=== PATIENT | female | born 1935 | race Caucasian/White ===

== ENCOUNTER 2018-11-07 19:08 | Inpatient (IN) | payer MEDICARE, OTHER ==
[2018-11-07] MEDS ORDERED: Nitroglycerin TAB 0.4 MG* 0.4 MG TAB SL PRN (21:56)
[2018-11-07] MEDS ORDERED: Bisacodyl EC TAB* 5 MG PO PRN (21:56)
[2018-11-07] MEDS ORDERED: Magnesium Hydroxide LIQ* 30 ML UDC PO PRN (21:56)
[2018-11-07] MEDS ORDERED: Acetaminophen TAB* 325 MG PO PRN (21:57)
[2018-11-07] MEDS ORDERED: oxyCODONE/Acetamin 5/325 MG* TAB PO PRN (21:57)
[2018-11-07] MEDS ORDERED: Heparin VIAL(*) 5000 UNITS/ML VIAL (FIVE THOUSAND) SUBCUT SCH (22:00)
[2018-11-07] MEDS ORDERED: Sodium Phosphate ADULT ENEMA* 118 ml bottle PR PRN (22:22)
[2018-11-07] MEDS ORDERED: Bisacodyl SUPP* 10 MG SUPP PR PRN (22:22)
[2018-11-07] MEDS: Morphine INJ* 2 MG/ML 1 ML SYRINGE (TWO MG - NEW SYRINGE VERSION) IV PRN (23:27)
[2018-11-07 23:50] LABS: Urine Appearance Clear; Urine Bilirubin Negative (Negative); Urine Blood Negative (Negative); Urine Color Yellow; Urine Glucose Negative (Negative); Urine Ketones Negative (Negative); Urine Nitrite Negative (Negative); Urine Protein Negative (Negative); Urine Specific Gravity 1.019 (1.010-1.030); Urine Urobilinogen Negative (Negative)
--- NOTE | 2018-11-08 00:32 | HP ---
CC: "Dr. Valdes"; Dr. Garduno * HISTORY AND PHYSICAL: DATE OF ADMISSION: 11/07/18 TIME OF EVALUATION: 9:30 p.m. PRIMARY CARE PROVIDER: Ruth Ann Kyle NP CONSULTING ORTHOPEDIST: Dr. Garduno. CHIEF COMPLAINT: "She broke her hip" as per son. HISTORY OF PRESENT ILLNESS: Ms. Diaz is an 83-year-old female with a past medical history of dementia, who was transferred from [facility] to our facility due to a hip fracture. The patient is a poor historian and most of the information is obtained from her records and from her family at bedside. As per the son, the patient has had dementia for almost 10 years and they were able to place the patient and her at [facility], but this was difficult for the family as they lived in [facility]. Earlier this year, the patient's passed and the family has been trying to move her to an area closer as another son moved to [place]. Finally, on 11/02/18, the patient was transferred from [facility] to [facility], and the family thinks she was adapting well and the family was happy too as they were able to see her more frequently and not having to drive such a long distance. Unfortunately today, the patient sustained a mechanical fall. The son thinks she tripped on a rug or on a chair. She went to [facility] and per records, she hit her head and had indicated pain in her pelvis. CT of the head without contrast showed atrophy and small scalp hematoma and CT of the pelvis showed left hip fracture. Orthopedist (Dr. Garduno) was consulted by [facility] and recommendation was to transfer to our facility for further evaluation and possible surgical management. At the time of my interview, the patient is sleeping, arousable to touch and she offers no complaints. PAST MEDICAL HISTORY: Dementia. PAST SURGICAL HISTORY: Status post hemorrhoidectomy. MEDICATIONS: 1. Omeprazole 20 mg p.o. daily. 2. Potassium chloride 20 mEq p.o. daily. 3. Sertraline 100 mg p.o. daily. 4. Lorazepam 0.5 mg p.o. b.i.d. 5. Sucralfate 1 g p.o. b.i.d. 6. Lactulose 10 g p.o. b.i.d. 7. MiraLAX 1 packet p.o. b.i.d. 8. Acetaminophen 500 mg p.o. b.i.d. 9. Aspirin 81 mg p.o. daily as needed for chest pain. 10. Acetaminophen 650 mg p.o. q.6 h. p.r.n. pain or fever. ALLERGIES: No known drug allergies. FAMILY HISTORY: I am unable to obtain from the patient but as per son he does not recall any specific significant family history. SOCIAL HISTORY: The patient has no history of tobacco, alcohol or drug use. She has [facility] living in the [facility] due to dementia for many years and she was recently moved from [facility] to [facility]. Surrogate decision maker are her son's Harshad and Mk Diaz, phone number [phone] and [phone]. REVIEW OF SYSTEMS: I am unable to obtain any information from the patient due to her dementia. PHYSICAL EXAMINATION GENERAL: The patient is an elderly lady, lying in bed, in no acute distress. VITAL SIGNS: Temperature 98.4, heart rate is 95, respiratory rate is 20, blood pressure 115/67, oxygen saturation 94% on 2 liters nasal cannula. HEENT: Pupils are equal, moist mucous membranes. CHEST: Breath sounds bilaterally with no added sounds. CVS: Normal S1, S2. Regular rate and rhythm with systolic murmur. ABDOMEN: Soft, nontender, nondistended. Bowel sounds present. EXTREMITIES: The left lower extremity is shortened and externally rotated. There is good capillary refill. Good pulses. NEUROLOGIC: The patient is sleeping but arousable to voice, oriented to self only. Does not follow commands. LABORATORY DATA AND IMAGING DATA: Blood test done at [facility] include a CBC that showed WBC of 7.5, hemoglobin of 13.8, hematocrit 42 with platelets 258, neutrophils 49%. Chemistries showed a glucose of 108, BUN of 31 , creatinine of 1.2, sodium 145, potassium 4.4, chloride 107, bicarb 28, calcium 9.7. LFT's showed bilirubin of 0.3, AST of 19, ALT of 20, alk phos of 90. CD with the images were sent to the hospital and they will be loaded by Radiology but the images are not available at this time. The report of CT head without contrast was of atrophy and small scalp hematoma. CT pelvis without contrast, the report was a transverse fracture through the subcapital aspect of the left femur with overriding mild lateral displacement and varus angulation. The hip joint itself remains intact. ASSESSMENT AND PLAN: Ms. Diaz is an 83-year-old female with a past medical history of dementia, who was transferred to our facility from [facility] after sustaining a mechanical fall with left hip fracture. 1. Left hip fracture. Dr. Garduno was already called by [facility] and he will see the patient in consultation. As part of her preop optimization , we are going to perform an EKG and as the patient has systolic murmur, she will also have an echocardiogram. Depending on those results, the hospitalist service will see that the patient is medically optimized for surgery. 2. Dementia. Continue supportive care. 3. Constipation. We will continue her bowel regimen. 4. DVT prophylaxis. The patient has a score of 3 on the DVT Prophylaxis Assessment Guide, she will be started on subcutaneous heparin. 5. Code Status. Code status was discussed with the patient's family and they stated that she is do not resuscitate for many years but they do not have the MOLST form since she was transferred from [facility]. A new MOLST form was filled up and placed in her chart. TIME SPENT: Approximately 50 minutes was spent with the family interview, patient's physical examination, medical records review to complete this admission, more than half of the time was spent [id number] with the patient and coordination of care. [id number]/[facility] #: [id number] MTDD
[2018-11-08] MEDS ORDERED: NS 0.9% 1000 ML** 1,000 ML IV SCH (04:30)
[2018-11-08 04:35] LABS: ABS Basophils 0.1 10^3/ul (0-0.2); ABS Eosinophils 0.2 10^3/ul (0-0.6); ABS Lymphocytes 0.9 10^3/ul (1.0-4.8); ABS Monocytes 0.7 10^3/ul (0-0.8); Eosinophil % 1.5 %; Hematocrit 42 % (35-47); Hemoglobin 14.1 g/dL (12.0-16.0); Lymphocyte % 7.9 %; Mean Corpuscular HGB Conc 33 g/dL (31-36); Mean Corpuscular Hemoglobin 29 pg (27-31); Mean Corpuscular Volume 87 fL (80-97); Mean Platelet Volume 8.6 fL (7.4-10.4); Platelet Count 216 10^3/uL (150-450); Red Blood Count 4.84 10^6 /uL (3.70-4.87); Red Cell Distribution Width 14 % (10-15); White Blood Count 11.8 10^3/uL (3.5-10.8)
[2018-11-08 04:50] LABS: BUN/Creatinine Ratio 23.8 (8-20); Calcium 8.8 mg/dL (8.6-10.3); EGFR African American 60.3 (>60); EGFR Non-African American 49.8 (>60); Potassium 4.2 mmol/L (3.5-5.0)
[2018-11-08] MEDS: Morphine INJ* 2 MG/ML 1 ML SYRINGE (TWO MG - NEW SYRINGE VERSION) IV PRN ×4 (04:50→13:52)
[2018-11-08] MEDS: LORazepam TAB(*) 0.5 MG PO SCH ×2 (09:37→20:55)
[2018-11-08] MEDS: Pantoprazole TAB * 40 MG TAB PO SCH (09:37)
[2018-11-08] MEDS: Polyethylene Glycol 3350* 17 GM PACKET PO SCH ×2 (09:37→20:56)
[2018-11-08] MEDS: Sertraline* 100 MG TAB PO SCH (09:38)
[2018-11-08] MEDS: Senna TAB 8.6 mg* TAB PO SCH (09:38)
[2018-11-08] MEDS: Sucralfate TAB* 1 GM PO SCH ×2 (09:38→20:56)
--- NOTE | 2018-11-08 13:51 | PN ---
Subjective Date of Service: 11/08/18 Interval History: Patient laying in bed on right side with pillow between legs. Awake, non-verbal , unable to respond to questions. Grimacing and gritting teeth. Review of systems limited due to dementia. Family History: Unchanged from Admission Social History: Unchanged from Admission Past Medical History: Unchanged from Admission Objective Active Medications: Acetaminophen (Tylenol Tab*) 650 mg PO Q6H PRN PRN Reason: MILD PAIN or TEMP > 100.4 Bisacodyl (Dulcolax Ec Tab*) 10 mg PO DAILY PRN PRN Reason: CONSTIPATION Bisacodyl (Dulcolax Supp*) 10 mg IL DAILY PRN PRN Reason: CONSTIPATION Sodium Chloride (Ns 0.9% 1000 Ml) 1,000 mls @ 100 mls/hr IV PER RATE [facility] Last Admin: 11/08/18 04:46 Dose: 100 mls/hr Lorazepam (Ativan Tab(*)) 0.5 mg PO BID [facility] Last Admin: 11/08/18 09:37 Dose: Not Given Magnesium Hydroxide (Milk Of [place] Liq*) 30 ml PO BEDTIME PRN PRN Reason: CONSTIPATION Morphine Sulfate (Morphine Inj (Syringe))*) 1 mg IV Q1H PRN PRN Reason: SEVERE PAIN Last Admin: 11/08/18 10:38 Dose: 1 mg Nitroglycerin (Nitroglycerin Tab 0.4 Mg*) 0.4 mg SL Q5M PRN PRN Reason: Chest pain Oxycodone/Acetaminophen (Percocet 5/325 Tab*) 1 tab PO Q4H PRN PRN Reason: PAIN - MODERATE Pantoprazole Sodium (Protonix Tab*) 40 mg PO DAILY [facility] Last Admin: 11/08/18 09:37 Dose: Not Given Polyethylene Glycol/Electrolytes (Miralax*) 17 gm PO BID [facility] Last Admin: 11/08/18 09:37 Dose: Not Given Senna (Senokot 8.6 Mg Tab*) 2 tab PO DAILY [facility] Last Admin: 11/08/18 09:38 Dose: Not Given Sertraline HCl (Zoloft*) 100 mg PO DAILY [facility] Last Admin: 11/08/18 09:38 Dose: Not Given Sodium Biphosphate/Sodium Phosphate (Fleet Enema*) 1 bottle IL DAILY PRN PRN Reason: CONSTIPATION Sucralfate (Carafate*) 1 gm PO BID [facility] Last Admin: 11/08/18 09:38 Dose: Not Given Vital Signs - 8 hr 11/08/18 11/08/18 11/08/18 06:57 08:00 08:28 Temperature 99.1 F Pulse Rate 86 Respiratory 16 18 18 Rate Blood Pressure 115/75 (mmHg) O2 Sat by Pulse 94 Oximetry 11/08/18 11/08/18 11/08/18 08:32 09:39 10:38 Temperature Pulse Rate Respiratory 18 18 20 Rate Blood Pressure (mmHg) O2 Sat by Pulse Oximetry 11/08/18 11/08/18 11:28 12:22 Temperature 97.8 F Pulse Rate 92 Respiratory 20 20 Rate Blood Pressure 126/56 (mmHg) O2 Sat by Pulse 92 Oximetry Oxygen Devices in Use Now: None Appearance: Awake, non-verbal. No acute distress noted. Eyes: No Scleral Icterus, PERRLA Ears/Nose/Mouth/Throat: NL Teeth, Lips, Gums, Clear Oropharnyx, Mucous Membranes Moist Neck: NL Appearance and Movements; NL JVP, Trachea Midline Respiratory: Symmetrical Chest Expansion and Respiratory Effort, Clear to Auscultation Cardiovascular: NL Sounds; No Murmurs; No JVD, RRR, No Edema Abdominal: NL Sounds; No Tenderness; No Distention Extremities: No Edema, No Clubbing, Cyanosis Skin: No Rash or Ulcers, No Nodules or Sclerosis Neurological: Alert and Oriented x 3, NL Sensation Lines/Tubes/Other Access: Clean, Dry and Intact Peripheral IV Result Diagrams: 11/08/18 04:12 11/08/18 04:12 Assess/Plan/Problems-Billing Assessment:
[2018-11-08] MEDS ORDERED: Famotidine IV* 10 MG/ML 2 ML (20 mg) IV ONE (13:54)
[2018-11-08] MEDS ORDERED: Buffered Lidocaine 1% SYRIN* 1 ML/SYRINGE INTRADERM ONE (13:54)
[2018-11-08] MEDS ORDERED: Dexamethasone IV* 4 MG/ML 1 ML (4 MG) IV SLOW PU ONE (13:54)
[2018-11-08] MEDS ORDERED: Heparin VIAL(*) 5000 UNITS/ML VIAL (FIVE THOUSAND) SUBCUT SCH (14:00)
[2018-11-08] MEDS ORDERED: Famotidine IV* 10 MG/ML 2 ML (20 mg) ONE (14:25)
[2018-11-08] MEDS ORDERED: Dexamethasone IV* 4 MG/ML 1 ML (4 MG) ONE (14:25)
--- NOTE | 2018-11-08 14:27 | CONS ---
ORTHOPEDIC CONSULTATION NOTE: DATE OF CONSULT: 11/08/18 PROVIDER: Robert Garduno MD HISTORY OF PRESENT ILLNESS: Ms. Diaz is an 83-year-old female with a past medical history of de mentia who was transferred to [facility] yesterday due to a hip fracture. The patient's s on reports that due to her dementia she often tries to get up out of her wheelchair and has had multi ple falls and thinks that this was the cause of her injury at this time. She was found on the floor at [facility] where she was recently transferred to. She was unable to get up and was unable to bear weight on the left side. She also had hematoma to her forehead. The patient was take n to [facility] where CT of the pelvis showed a left hip fracture. She was then transferred t o [facility] for further evaluation. PAST MEDICAL HISTORY: Dementia. PAST SURGICAL HISTORY: Hemorrhoidectomy. CURRENT MEDICATIONS: 1. Omeprazole 20 mg daily. 2. Potassium chloride 20 mEq daily. 3. Sertraline 100 mg daily 4. Lorazepam 0.5 mg b.i.d. 5. Sucralfate 1 g p.o. b.i.d. 6. Lactulose 10 g p.o. b.i.d. 7. MiraLAX 1 packet p.o. b.i.d. 8. Acetaminophen 500 mg p.o. b.i.d. 9. Aspirin 81 mg p.o. daily as needed for chest pain. ALLERGIES: No known drug allergies. FAMILY HISTORY: Unable to obtain from the patient. SOCIAL HISTORY: She is recently . She has dementia and was moved from [facility] to [facility] . She has no history of tobacco, alcoholic beverage, or drug use. REVIEW OF SYSTEMS: Unable to obtain due to her dementia. PHYSICAL EXAM: General: She is a well-developed, well-nourished female, in no acute distress at [facility], she is lying comfortably in bed. Vital Signs: The patient's blood pressure is 126/56, temperatur e 97.8, pulse 92, respirations 20, oxygen 92% on room air. She is alert, oriented to self only. She is unable to identify place and time. HEENT: Normocephalic. She has a small hematoma on her scalp with no laceration. Vision and hearing are grossly intact. Neck: Her trachea is midline. Cardiov ascular: Regular rate and rhythm. There is a systolic murmur audible, normal S1, S2. Respiratory: Lungs are clear to auscultation bilaterally. No wheezes, rales or rhonchi. Abdomen: Soft, nondist ended, nontender with normal bowel sounds. Extremities: Her left lower extremity is shortened and e xternally rotated with some mild ecchymosis to the posterior lateral aspect of the hip. She is tende r to palpation diffusely around the hip and the thigh, nontender throughout the remainder of the lowe r leg. She is able to dorsiflex and plantarflex at the ankle. Her sensation to light touch is intac t. She has 2+ dorsalis pedis pulse. IMAGING: CT of the pelvis shows a transverse fracture through the subcapital aspect of the left femu r with varus angulation. IMPRESSION: Left femoral neck fracture. PLAN: Case was discussed with Dr. Garduno who agrees that we should proceed with a left hip hemiarth roplasty. The patient is awaiting for medical clearance for risk stratification and optimization. A ll of the son's questions were answered to their full satisfaction regarding her mother's care. We w ill follow up with the patient postoperatively. IVAN CASTRO [id number]/[facility] #: [id number]
[2018-11-08] MEDS: Lactated Ringers 1000 ML Bag* 1,000 ML IV SCH ×2 (14:48→20:32)
--- NOTE | 2018-11-08 15:01 | ECHO ---
*[facility]* [place] [address] Fax #: [phone] Transthoracic Echocardiogram Patient: Gabriela Diaz : 1935 Study Date: 11/08/2018 Age: 83 Gender: F HR: 85 bpm Height: 65 in /165.1 cm BSA: 1.78 m^2 Weight: 156.7 lb /71.2 kg BMI: 26.1 kg/m^2 *Entertainment Director: * Dilma Arias RD *Referring Physician: * Lay EstrellaReading Physician: * Lex Stanton MD Indications: Murmur. History: Dementia. Conclusions Summary: - Left ventricle: The cavity size is below normal. Wall thickness is mildly increased. Systolic function is normal. The estimated ejection fraction is 60-65%. Wall motion is normal; there are no regional wall motion abnormalities. Doppler parameters are consistent with abnormal left ventricular relaxation (grade 1 diastolic dysfunction). - Left atrium: The atrium is mildly dilated. - Right atrium: The atrium is mildly dilated. - Aortic valve: The findings are consistent with mild to moderate stenosis. - There is no prior echocardiogram available to compare with at this time. Study data: Transthoracic echocardiogram. Procedure: Transthoracic echocardiography was performed. Image quality was fair. The study was technically limited due to poor patient compliance and restricted patient mobility. Complete 2D, spectral Doppler, and color flow Doppler. Location: Bedside. Patient status: Inpatient. Patient room number: 335. Rhythm: Normal sinus rhythm. Findings Left ventricle: The cavity size is below normal. Wall thickness is mildly increased. Systolic function is normal. The estimated ejection fraction is 60-65%. Wall motion is normal; there are no regional wall motion abnormalities. Doppler parameters are consistent with abnormal left ventricular relaxation (grade 1 diastolic dysfunction). Right ventricle: The cavity size is at the upper limits of normal. Wall thickness is at the upper limits of normal. The moderator band is in a normal position. Systolic function is normal. Systolic pressure is within the normal range. Left atrium: The atrium is mildly dilated. Right atrium: The atrium is mildly dilated. Mitral valve: The Mitral valve annulus appears mildly calcified. The leaflets are mildly thickened. There is trace regurgitation. Aortic valve: Not well visualized. The leaflets are mildly calcified. Valve mobility is restricted. The findings are consistent with mild to moderate stenosis. There is trace regurgitation. Tricuspid valve: The leaflets are normal thickness. There is trace regurgitation. Pulmonic valve: Poorly visualized. The leaflets are normal thickness. There is no evidence of stenosis nor regurgitation. Aorta: Ascending aorta: The ascending aorta is appears normal. The aortic root appears normal. The aortic arch appears normal. Pericardium: A prominent pericardial fat pad is present. There is no significant pericardial effusion. Pulmonary arteries: Not well visualized. Systemic veins: Inferior vena cava: The vessel is normal in size. There is (>= 50%) respiratory change in the IVC dimension. Measurements Left ventricle Value Ref Aortic valve Value Ref VIELKA, LAX (L) 3.5 cm 3.8 - 5.2 Gertrudis diam, ED 1.6 cm ----- ESD, LAX 2.7 cm 2.2 - 3.5 Peak v, S 2.5 m/sec ----- FS, LAX (L) 23 % 27 - 45 VTI, S 56.0 cm ----- PW, ED, LAX (H) 1.2 cm 0.6 - 0.9 Mean grad, S 13.0 mm Hg ----- FS (L) 23 % 27 - 45 Peak grad, S 25.0 mm Hg ----- PW, ED (H) 1.2 cm 0.6 - 0.9 LVOT/AV, VTI ratio 0.39 ----- E', lat gertrudis, TDI (L) 7.7 cm/sec >=10.0 TYSON, VTI 1.12 cm^2 --- -- E/e', lat gertrudis, 10 TYSON, Vmax 1.17 cm^2 ----- TDI E', med gertrudis, TDI (L) 6.2 cm/sec >=7.0 Mitral valve Value Ref E/e', med gertrudis, 12 Peak E 0.77 m/sec ----- TDI Peak A 1.32 m/sec ----- E', avg, TDI 7.0 cm/sec Decel time 148 ms ----- E/e', avg, TDI 11 <=14 Peak grad, D 2.4 mm Hg --- -- Peak E/A ratio 0.6 ----- LVOT Value Ref Diam, S 1.90 cm Pulmonic valve Value Ref Area 2.8 cm^2 Peak v, S 0.87 m/sec ----- Peak izzy, S 1.03 m/sec Peak grad, S 3.0 mm Hg ----- VTI, S 22.0 cm Mean grad, S 3 mm Hg Tricuspid valve Value Ref SV 64 ml TR peak v 2.8 m/sec <=2.8 SV/bsa 36 ml/m^2 Peak RV-RA grad, S 31 mm Hg ----- Ventricular septum Value Ref Aortic root Value Ref IVS, ED (H) 1.2 cm 0.6 - 0.9 Root diam 3.1 cm <4.0 Right ventricle Value Ref Ascending aorta Value Ref AW thickness, ED 0.5 cm 0.1 - 0.5 AAo AP diam, S 2.7 cm ----- VIELKA, LAX 3.9 cm Pressure, S 34 mm Hg Aortic arch Value Ref Arch diam 2.1 cm ----- Left atrium Value Ref AP dim, ES 3.60 cm 2.70 - Decending aorta Value Ref 3.80 Ilya peak izzy 0.93 m/sec ----- ML dim, A4C 4.9 cm SI dim, A4C 5.3 cm Pulmonary artery Value Ref Vol/bsa, ES, 1-p 30 ml/m^2 11 - 40 Pressure, S 31.0 mm Hg ----- A4C Vol/bsa, ES, A/L (H) 36 ml/m^2 16 - 34 Inferior vena cava Value Ref Diam 1.4 cm ----- Right atrium Value Ref SI dim, ES 4.9 cm 3.4 - 5.3 ML dim, ES, A4C (H) 4.6 cm 2.6 - 4.4 SI dim, ES, A4C 4.9 cm 3.4 - 5.3 Estimated RAP 3 mm Hg Legend: (L) and (H) arleth values outside specified reference range. Prepared and electronically signed by Lex Stanton MD 11/08/2018 15:01
[2018-11-08] MEDS ORDERED: Bupivacaine 0.5% SDV PF* 30ML VIAL ONE (15:36)
[2018-11-08] MEDS ORDERED: Ondansetron INJ* 2 MG/ML VIAL ONE (15:36)
[2018-11-08] MEDS ORDERED: Propofol* 10 MG/ML 20 ML BTL ONE (15:36)
[2018-11-08] MEDS ORDERED: ceFAZolin 2 GM in NS PREMIX(*) 2 GM/100 ML BAG IVPB ONE (15:38)
[2018-11-08] MEDS ORDERED: fentaNYL* 50 MCG/ML 2 ML VIAL (100 MCG VIAL) ONE (15:39)
[2018-11-08] MEDS ORDERED: Midazolam* 1 MG/ML 5 ML VIAL (5 MG) ONE (15:39)
[2018-11-08] MEDS ORDERED: KETAMINE HCL* 50 MG/ML 10 ML VIAL ONE (15:40)
[2018-11-08] MEDS ORDERED: fentaNYL* 50 MCG/ML 2 ML VIAL (100 MCG VIAL) IV PRN (16:37)
[2018-11-08] MEDS ORDERED: Ondansetron INJ* 2 MG/ML VIAL IV PRN (16:37)
[2018-11-08] MEDS ORDERED: Naloxone* 0.4 MG/ML 1 ML VIAL IV PRN (16:37)
[2018-11-08] MEDS ORDERED: HYDROmorphone INJ1* 1 MG/ML SYRINGE IV PRN (16:37)
--- NOTE | 2018-11-08 23:38 | OP ---
DATE OF OPERATION: 11/08/18 - ROOM #335 DATE OF : 31 SURGEON: Robert Garduno MD. ACUTE CARE NURSE PRACTITIONER: Jennifer Fregoso RPA. ANESTHESIA: Spinal sedation. PRE-OP DIAGNOSIS: Displaced left femoral neck fracture. POST-OP DIAGNOSIS: Displaced left femoral neck fracture. OPERATIVE PROCEDURE: Left hemiarthroplasty. INDICATIONS: Mrs. Diaz is an 83-year-old female who had fallen at the senior living at [facility]. CAT scan done showed a displaced femoral neck fracture. This occurred yesterday evening. She was transferred to the hospital here and admitted by the hospitalist service. This morning, she had an echocardiogram, which was fairly benign for her age and she had been declared medically optimized for surgery. I discussed with her sons the risks of surgery such as infection, scar formation, stiffness, DVT, pulmonary embolism , leg-length discrepancy, and instability of the hip because of her significant dementia. They had wished to proceed. ESTIMATED BLOOD LOSS: 100 cc. COMPLICATIONS: None. HARDWARE: Tad 12.5 M/L taper, +0.28 mm head, 44 mm bipolar cup. DESCRIPTION OF PROCEDURE: The patient was brought to the OR and spinal anesthesia was introduced. She was then transferred to the OR bed and was quite comfortable. Pegboard had been set up. She was then rolled into the right lateral decubitus position and an axillary roll was placed. Pegs were placed and she was firmly attached to the OR bed. Left hip area was prepped and then draped. Incision was made directly over the greater trochanter extending distally for about 5 cm, and then proximally for another 5 cm. Incision was carried down through the skin and subcutaneous fat. Small bleeders encountered were ligated using electrocautery. Fascia laterally was found and sharply incised. Muscle was bluntly split proximally and nice exposure of the greater trochanter with the greater trochanteric bursa was obtained. Hohmann was placed under the gluteus medius/gluteus minimus and I could palpate the piriformis. Electrocautery was used to take down the piriformis and part of the short external rotators, and the femoral neck was immediately evident. She had broken right at the base of the head and a T- capsulotomy was made and I did then fall into the fracture. A femoral cutting guide was placed and the femoral neck was marked. A femoral neck cut was then taken and it appeared that a nice cut was obtained. With taking that bone out, raw bone of the fracture of the femoral head was immediately evident. Using the corkscrew, I was able to place the corkscrew into the bone, but then with rotation and pulling, essentially pulled right through. A second attempt was made and this time with using the Hill to help stabilize so I could get a better bite, head was removed in its entirety. This easily slid through the 45 mm sizer. She was trialed with 43, 44, and 45 and I liked the fit of the 44 the best. The acetabulum was repeatedly swept to clear out small bony debris and several times, small pieces were found. Once the acetabulum was cleared, damp lap pad was placed and attention was turned to the proximal femur. Box osteotome was used to open the femoral canal and the canal finder was easily passed. Beginning with a #4, she was progressively broached and a #11 seemed to have a nice fit. She was trialed with a standard neck, 0 head, and 44 mm shell and she had excellent stability. She could be hyperflexed up to 120 degrees and at 90 degrees, she could be internally rotated to 90 degrees and did not dislocate. Even with coming down to full adduction and internally rotating, it still required traction in order to get her out of the acetabulum. Leg length appeared good. The trial head was removed and when the broach was placed, stem was loose. A 12.5 stem was gently placed with the mallet and seemed to have a nice secure fit. The trial neck and head were again placed, and she was taken through a range of motion and this time, the stem did not loosen. A 12.5 stem was called for and then impacted into place. The head was then assembled with a +0 28 mm head, 44 bipolar polyethylene, and then the 44 shell. She was then easily located. Capsule and short external rotators were repaired together to the back side of the greater trochanter. The wound was copiously pulse lavaged. Fascia was repaired using interrupted #1 Vicryl sutures. Subcutaneous tissues were reapproximated using 2-0 Vicryl. Skin was closed using darron. Sterile dressing was applied. The patient was then rolled on to the hospital bed and was stable on transfer to the recovery room. [id number]/[facility] #: [id number] MTDD
[2018-11-08] MEDS: ceFAZolin 1 GM ADVAN(*) 1 GM in NS 0.9% 50 ML* 50 ML IVPB SCH (23:58)
[2018-11-09] MEDS: Lactated Ringers 1000 ML Bag* 1,000 ML IV SCH ×3 (04:45→21:17)
[2018-11-09 06:02] LABS: ABS Eosinophils 0.2 10^3/ul (0-0.6); ABS Neutrophils 9.4 10^3/ul (1.5-7.7); Eosinophil % 1.8 %; Hematocrit 35 % (35-47); Hemoglobin 11.6 g/dL (12.0-16.0); Lymphocyte % 8.6 %; Mean Corpuscular HGB Conc 33 g/dL (31-36); Mean Corpuscular Hemoglobin 29 pg (27-31); Mean Corpuscular Volume 88 fL (80-97); Mean Platelet Volume 8.5 fL (7.4-10.4); Platelet Count 158 10^3/uL (150-450); Red Blood Count 3.98 10^6 /uL (3.70-4.87); Red Cell Distribution Width 14 % (10-15); White Blood Count 11.6 10^3/uL (3.5-10.8)
[2018-11-09 06:21] LABS: BUN/Creatinine Ratio 17.7 (8-20); Calcium 8.4 mg/dL (8.6-10.3); EGFR African American 66.8 (>60); EGFR Non-African American 55.2 (>60); Potassium 4.4 mmol/L (3.5-5.0)
[2018-11-09] MEDS: LORazepam TAB(*) 0.5 MG PO SCH ×2 (08:28→23:13)
[2018-11-09] MEDS: Sucralfate TAB* 1 GM PO SCH ×2 (08:30→23:14)
[2018-11-09] MEDS: Sertraline* 100 MG TAB PO SCH (08:30)
[2018-11-09] MEDS: Pantoprazole TAB * 40 MG TAB PO SCH (08:32)
[2018-11-09] MEDS: ceFAZolin 1 GM ADVAN(*) 1 GM in NS 0.9% 50 ML* 50 ML IVPB SCH ×2 (09:46→17:13)
[2018-11-09] MEDS: Polyethylene Glycol 3350* 17 GM PACKET PO SCH ×2 (10:10→23:13)
[2018-11-09] MEDS: Senna TAB 8.6 mg* TAB PO SCH (10:10)
--- NOTE | 2018-11-09 12:29 | PN ---
Progress Note - Progress Note Date of Service: 11/09/18 SOAP: Subjective: []Pt seen and examined at bedside. She does not communicate with me, though does follow direction. Objective: []Gen: NAD, audibly grinding her teeth LLE: Left hip dressing CDI, thigh soft, DF/PF intact, DP2+, extremity is warm, unable to assess sensation as patient does not respond Calves supple and nontender without erythema, edema or palpable cords Assessment: [ L femoral neck fx, POD 1 sp hemiarthroplasty Plan: []WBAT, oob Posterior hip precautions lovenox 30 mg sq qd x 30 days post op Vital Signs Temp 98.3 F 11/09/18 11:18 Pulse 103 11/09/18 11:18 Resp 18 11/09/18 11:18 BP 127/64 11/09/18 11:18 Pulse Ox 92 11/09/18 11:18 Intake & Output 11/08/18 11/09/18 11/09/18 18:59 06:59 18:59 Intake Total 1400 1150 Output Total 950 Balance 1400 200 Weight 154 lb 12.8 oz 161 lb 8 oz Intake: IV Fluids 1400 1000 LR 1400 1000 IVPB 50 ABX - CEFAZOLIN 50 Oral 100 Output: Steve 950 Other: # Bowel Movements 1 Estimated Stool Amount Small Laboratory Last Values WBC 11.6 10^3/uL (3.5-10.8) H 11/09/18 05:50 RBC 3.98 10^6 /uL (3.70-4.87) 11/09/18 05:50 Hgb 11.6 g/dL (12.0-16.0) L 11/09/18 05:50 Hct 35 % (35-47) 11/09/18 05:50 MCV 88 fL (80-97) 11/09/18 05:50 MCH 29 pg (27-31) 11/09/18 05:50 MCHC 33 g/dL (31-36) 11/09/18 05:50 RDW 14 % (10-15) 11/09/18 05:50 Plt Count 158 10^3/uL (150-450) 11/09/18 05:50 MPV 8.5 fL (7.4-10.4) 11/09/18 05:50 Neut % (Auto) 80.8 % 11/09/18 05:50 Lymph % (Auto) 8.6 % 11/09/18 05:50 [place] % (Auto) 8.5 % 11/09/18 05:50 Eos % (Auto) 1.8 % 11/09/18 05:50 Baso % (Auto) 0.3 % 11/09/18 05:50 Absolute Neuts (auto) 9.4 10^3/ul (1.5-7.7) H 11/09/18 05:50 Absolute Lymphs (auto) 1.0 10^3/ul (1.0-4.8) 11/09/18 05:50 Absolute Monos (auto) 1.0 10^3/ul (0-0.8) H 11/09/18 05:50 Absolute Eos (auto) 0.2 10^3/ul (0-0.6) 11/09/18 05:50 Absolute Basos (auto) 0.0 10^3/ul (0-0.2) 11/09/18 05:50 Absolute Nucleated RBC 0.0 10^3/ul 11/09/18 05:50 Nucleated RBC % 0.0 11/09/18 05:50 Sodium 137 mmol/L (135-145) 11/09/18 05:50 Potassium 4.4 mmol/L (3.5-5.0) 11/09/18 05:50 Chloride 108 mmol/L (101-111) 11/09/18 05:50 Carbon Dioxide 25 mmol/L (22-32) 11/09/18 05:50 Anion Gap 4 mmol/L (2-11) 11/09/18 05:50 BUN 17 mg/dL (6-24) 11/09/18 05:50 Creatinine 0.96 mg/dL (0.51-0.95) H 11/09/18 05:50 Est GFR ( Amer) 66.8 (>60) 11/09/18 05:50 Est GFR (Non-Af Amer) 55.2 (>60) 11/09/18 05:50 BUN/Creatinine Ratio 17.7 (8-20) 11/09/18 05:50 Glucose 124 mg/dL (70-100) H 11/09/18 05:50 Calcium 8.4 mg/dL (8.6-10.3) L 11/09/18 05:50 Urine Color Yellow 11/07/18 23:30 Urine Appearance Clear 11/07/18 23:30 Urine pH 7.0 (5-9) 11/07/18 23:30 Ur Specific [place] 1.019 (1.010-1.030) 11/07/18 23:30 Urine Protein Negative (Negative) 11/07/18 23:30 Urine Ketones Negative (Negative) 11/07/18 23:30 Urine Blood Negative (Negative) 11/07/18 23:30 Urine Nitrate Negative (Negative) 11/07/18 23:30 Urine Bilirubin Negative (Negative) 11/07/18 23:30 Urine Urobilinogen Negative (Negative) 11/07/18 23:30 Ur Leukocyte Esterase Negative (Negative) 11/07/18 23:30 Urine Glucose Negative (Negative) 11/07/18 23:30 Urine Ascorbic Acid * (Negative) A 11/07/18 23:30
[2018-11-09] MEDS ORDERED: oxyCODONE TAB* 5 MG TAB PO PRN (12:51)
[2018-11-09] MEDS ORDERED: traMADol TAB* 50 MG PO PRN (12:55)
[2018-11-09] MEDS: Acetaminophen TAB* 325 MG PO SCH ×2 (13:27→23:13)
--- NOTE | 2018-11-09 14:49 | PN ---
Subjective Date of Service: 11/09/18 Interval History: S/P Left hip hemiarthroplasty as of yesterday. Patient currently sitting up in chair, opens eyes when spoken to though continues to be non-verbal, unable to follow commands. Noted grimacing and grinding of teeth. Limited ROS due to dementia. Family History: Unchanged from Admission Social History: Unchanged from Admission Past Medical History: Unchanged from Admission Objective Active Medications: Acetaminophen (Tylenol Tab*) 975 mg PO Q8H [facility] Last Admin: 11/09/18 13:27 Dose: Not Given Bisacodyl (Dulcolax Ec Tab*) 10 mg PO DAILY PRN PRN Reason: CONSTIPATION Bisacodyl (Dulcolax Supp*) 10 mg NM DAILY PRN PRN Reason: CONSTIPATION Enoxaparin Sodium (Lovenox(*)) 30 mg SUBCUT Q24H [facility] Lactated Ringer's (Lactated Ringers 1000 Ml Bag*) 1,000 mls @ 125 mls/hr IV PER RATE [facility] Last Admin: 11/09/18 12:57 Dose: 125 mls/hr Cefazolin Sodium 1 gm/ Sodium (Chloride) 50 mls @ 200 mls/hr IVPB Q8H [facility] Stop: 11/09/18 16:14 Last Admin: 11/09/18 09:46 Dose: 200 mls/hr Lorazepam (Ativan Tab(*)) 0.5 mg PO BID [facility] Last Admin: 11/09/18 08:28 Dose: 0.5 mg Magnesium Hydroxide (Milk Of Magnesia Liq*) 30 ml PO BEDTIME PRN PRN Reason: CONSTIPATION Morphine Sulfate (Morphine Inj (Syringe))*) 1 mg IV Q1H PRN PRN Reason: SEVERE PAIN Last Admin: 11/08/18 13:52 Dose: 1 mg Nitroglycerin (Nitroglycerin Tab 0.4 Mg*) 0.4 mg SL Q5M PRN PRN Reason: Chest pain Oxycodone HCl (Roxycodone Tab*) 5 mg PO Q4H PRN PRN Reason: PAIN - SEVERE Pantoprazole Sodium (Protonix Tab*) 40 mg PO DAILY [facility] Last Admin: 11/09/18 08:32 Dose: 40 mg Polyethylene Glycol/Electrolytes (Miralax*) 17 gm PO BID [facility] Last Admin: 11/09/18 10:10 Dose: Not Given Senna (Senokot 8.6 Mg Tab*) 2 tab PO DAILY [facility] Last Admin: 11/09/18 10:10 Dose: Not Given Sertraline HCl (Zoloft*) 100 mg PO DAILY [facility] Last Admin: 11/09/18 08:30 Dose: 100 mg Sodium Biphosphate/Sodium Phosphate (Fleet Enema*) 1 bottle NM DAILY PRN PRN Reason: CONSTIPATION Sucralfate (Carafate*) 1 gm PO BID [facility] Last Admin: 11/09/18 08:30 Dose: 1 gm Tramadol HCl (Ultram*) 50 mg PO Q8H PRN PRN Reason: PAIN - MODERATE Vital Signs - 8 hr 11/09/18 11/09/18 11/09/18 07:32 07:38 08:28 Temperature Pulse Rate Respiratory 20 18 Rate Blood Pressure (mmHg) O2 Sat by Pulse 95 Oximetry 11/09/18 11/09/18 11/09/18 08:29 10:29 11:18 Temperature 98.3 F Pulse Rate 103 Respiratory 18 17 18 Rate Blood Pressure 127/64 (mmHg) O2 Sat by Pulse 92 Oximetry 11/09/18 13:13 Temperature Pulse Rate 94 Respiratory 20 Rate Blood Pressure (mmHg) O2 Sat by Pulse 93 Oximetry Oxygen Devices in Use Now: Nasal Cannula Appearance: Grimacing, grinding teeth, appears pained. Eyes: No Scleral Icterus, PERRLA Ears/Nose/Mouth/Throat: NL Teeth, Lips, Gums, Clear Oropharnyx, Mucous Membranes Moist Neck: NL Appearance and Movements; NL JVP, Trachea Midline Respiratory: Symmetrical Chest Expansion and Respiratory Effort, - - Diminished in bases bilaterally on room air. Cardiovascular: RRR, - - Noted grade 2 aortic stenosis. Abdominal: NL Sounds; No Tenderness; No Distention Lymphatic: No Cervical Adenopathy Extremities: No Clubbing, Cyanosis, - - 2+ non-pitting edema to left thigh. Skin: - - Dressing to left hip is clean, dry and intact. Neurological: Alert and Oriented x 3, NL Sensation Lines/Tubes/Other Access: Clean, Dry and Intact Peripheral IV Result Diagrams: 11/09/18 05:50 11/09/18 05:50 Assess/Plan/Problems-Billing Assessment: This is an 83 year old patient with a past medical history significant for dementia that presented to the emergency room as a transfer from [place] on 11/07 after a mechanical fall at [facility]. Patient found to have a left femur fracture. Hospitalists consulted to admit, consult placed to Orthopedics. - Patient Problems (1) Fracture of femoral neck, left Current Visit: Yes Status: Acute Onset Date: 11/07/18 Code(s): S72.002A - FRACTURE OF UNSP PART OF NECK OF LEFT FEMUR, INIT SNOMED Code(s): 5134916 Comment: -Ortho consult placed -S/P left hip hemiarthroplasty, management per ortho with regards to PT/OT. -Scheduled tylenol around the clock for pain control with prn tramadol or oxycodone. -hip precautions in place (2) Dementia Current Visit: Yes Status: Acute Code(s): F03.90 - UNSPECIFIED DEMENTIA WITHOUT BEHAVIORAL DISTURBANCE SNOMED Code(s): 10079559 Comment: Supportive care (3) Constipation Current Visit: Yes Status: Acute Code(s): K59.00 - CONSTIPATION, UNSPECIFIED SNOMED Code(s): 42832836 Comment: Continue bowel regimen (4) Anxiety Current Visit: Yes Status: Acute Code(s): F41.9 - ANXIETY DISORDER, UNSPECIFIED SNOMED Code(s): 47421840 Comment: Continue ativan (5) DVT prophylaxis Current Visit: Yes Status: Acute Code(s): Z29.9 - ENCOUNTER FOR PROPHYLACTIC MEASURES, UNSPECIFIED SNOMED Code(s): 323444775 Comment: SCD's and lovenox (6) Do not resuscitate Current Visit: Yes Status: Acute Status and Disposition: Inpatient, pending discharge pack to [facility] Counseling and/or Coordination of Care Minutes: 30 Attending: Marly Reyes
[2018-11-09] MEDS ORDERED: Enoxaparin(*) 30 MG/0.3 ML SYR SUBCUT SCH (21:00)
[2018-11-10] MEDS: Acetaminophen TAB* 325 MG PO SCH ×2 (04:51→12:47)
[2018-11-10] MEDS: Lactated Ringers 1000 ML Bag* 1,000 ML IV SCH ×2 (04:56→13:24)
[2018-11-10 06:11] LABS: ABS Eosinophils 0.4 10^3/ul (0-0.6); ABS Lymphocytes 1.2 10^3/ul (1.0-4.8); ABS Monocytes 0.9 10^3/ul (0-0.8); ABS Neutrophils 5.8 10^3/ul (1.5-7.7); Eosinophil % 4.2 %; Hematocrit 37 % (35-47); Hemoglobin 11.9 g/dL (12.0-16.0); Mean Corpuscular HGB Conc 32 g/dL (31-36); Mean Corpuscular Hemoglobin 29 pg (27-31); Mean Corpuscular Volume 90 fL (80-97); Platelet Count 112 10^3/uL (150-450); Red Blood Count 4.12 10^6 /uL (3.70-4.87); Red Cell Distribution Width 15 % (10-15); White Blood Count 8.3 10^3/uL (3.5-10.8)
[2018-11-10 06:33] LABS: Calcium 7.9 mg/dL (8.6-10.3)
[2018-11-10 06:38] LABS: BUN/Creatinine Ratio 19.6 (8-20); EGFR Non-African American 54.6 (>60)
[2018-11-10 07:08] LABS: Potassium 4.1 mmol/L (3.5-5.0)
[2018-11-10] MEDS: Polyethylene Glycol 3350* 17 GM PACKET PO SCH (10:18)
[2018-11-10] MEDS: Senna TAB 8.6 mg* TAB PO SCH (10:18)
[2018-11-10] MEDS: Sertraline* 100 MG TAB PO SCH (10:28)
[2018-11-10] MEDS: LORazepam TAB(*) 0.5 MG PO SCH (10:28)
[2018-11-10] MEDS: Pantoprazole TAB * 40 MG TAB PO SCH (10:28)
[2018-11-10] MEDS: Sucralfate TAB* 1 GM PO SCH (11:37)
[2018-11-10 11:41] VITALS: BP 110/38
--- NOTE | 2018-11-10 14:19 | PN ---
Progress Note - Progress Note Date of Service: 11/10/18 SOAP: Subjective: Pt is doing well. At Nonverbal baseline. VSS overnight Objective: PE- 83 y/o WDWN F NAD, A&Ox3 LLE- dressing changed, inc c/d/i without sign of infection, calf soft NT, able DF/PF ankle, + 2 DP pulse, SILT distally Vital Signs Temp Pulse Resp BP Pulse Ox 98.0 F 92 16 110/38 99 11/10/18 11:40 11/10/18 11:40 11/10/18 12:45 11/10/18 11:40 11/10/18 11:40 Laboratory Results - last 24 hr 11/10/18 11/10/18 04:48 04:48 WBC 8.3 RBC 4.12 Hgb 11.9 L Hct 37 MCV 90 MCH 29 MCHC 32 RDW 15 Plt Count 112 L MPV 9.0 Neut % (Auto) 69.8 Lymph % (Auto) 15.0 [place] % (Auto) 10.5 Eos % (Auto) 4.2 Baso % (Auto) 0.5 Absolute Neuts (auto) 5.8 Absolute Lymphs (auto) 1.2 Absolute Monos (auto) 0.9 H Absolute Eos (auto) 0.4 Absolute Basos (auto) 0.0 Absolute Nucleated RBC 0.0 Nucleated RBC % 0.0 Sodium 136 Potassium 4.1 Chloride 108 Carbon Dioxide 23 Anion Gap 5 BUN 19 Creatinine 0.97 H Est GFR ( Amer) 66.0 Est GFR (Non-Af Amer) 54.6 BUN/Creatinine Ratio 19.6 Glucose 107 H Calcium 7.9 L Assessment: [ L femoral neck fx, POD 2 sp hemiarthroplasty Plan: []WBAT- PT/OT Posterior hip precautions Tramadol for pain lovenox 30 mg sq qd x 30 days post op Dc to SNF today F/U in [address] Garduno
--- NOTE | 2018-11-10 14:28 | DS ---
AMENDED REPORT NOW INCLUDES DESIGNATED COSIGNER CC: Ruth Ann Kyle NP; [facility] * DATE OF ADMISSION: 11/07/2018. DATE OF DISCHARGE: 11/10/2018. ATTENDING PHYSICIAN: Dr. Reyes * (dictated by Magaly Lopez NP). PRIMARY CARE PHYSICIAN: Ruth Ann Kyle NP. CONSULTING PHYSICIAN: Dr. Garduno. PRIMARY DIAGNOSIS: Mechanical fall resulting in left femur fracture, status post left total hip arthroplasty. SECONDARY DIAGNOSES: Dementia and Alzheimer's. PROCEDURE: None. STUDIES: Transthoracic echocardiogram on 11/08/2018 showed bilateral atrium is mildly dilated, ejection fraction of 60 to 65 percent, calcifications to the mild calcified aortic valve, no evidence of any regurgitation. On 11/07/2018, echocardiogram revealed sinus tachycardia. PERTINENT LAB DATA: Hgb 11.9, creatinine 0.97, calcium 7.9 HOSPITAL COURSE: This is an 83-year-old patient, female, with a past medical history significant for dementia who arrived to the emergency room as a transfer from [place] on 11/07/2018, status post mechanical fall from [facility]. Dr. Garduno was consulted. On 11/08/2018, the patient underwent left hip arthroplasty without any complications. Today, the patient is awake though nonverbal, no grimacing, no guarding, afebrile, normotensive, no elevated white blood cell count. Physical Therapy and Occupational Therapy evaluated the patient. She was unable to get up without a Amarjit lift. Required extensive PT and OT and continued support to be discharged to [facility] today. REVIEW OF SYSTEMS: Unable to perform thorough review of systems due to limited cognition. PHYSICAL EXAMINATION: General: No acute distress noted. HEENT: Eyes: Conjunctiva pink, moist. PERRLA. extraocular muscles intact. HEENT: Normocephalic, atraumatic. Oropharynx is clear. Mucous membranes moist. Neck : No lymphadenopathy noted. Cardiovascular: S1, S2 noted. Heart rate regular. Appreciated a grade 2 holosystolic murmur, heard loudest at the left second intercostal. Respiratory: She is on room air. Lungs sound clear bilaterally throughout. No wheezes noted. Abdomen: Soft, nontender, positive bowel sounds times four. Extremities: +2 nonpitting edema to the left thigh. Positive pedal pulses. Cap refill within three seconds. Skin: Dressing to left hip is clean, dry, and intact. Bilateral upper extremity bruises from previous venous access. Neurologic: The patient is awake. She is arousable, alert. Unable to assess orientation due to nonverbal status. Does not follow commands. DISCHARGE PLAN: 1. Left hip hemiarthroplasty: Continue PT/OT. Continue 30 days worth of Lovenox 30 mg daily. Continue supportive care. Recommend scheduled Tylenol 975 q.8 hours with prn Tramadol. 2. Dementia: Continue supportive care, sertraline, lorazepam 3. Constipation: Please continue stool softeners and Senna at night. 4. GERD: Continue omeprazole. 5. Code status: DNR. MEDICATIONS: Continued home medications: 1. Dulcolax 5 mg p.o. daily. 2. Lorazepam 0.5 mg p.o. b.i.d. 3. Magnesium Hydroxide 30 ml p.o. at bedtime prn. 4. Nitroglycerin 0.4 mg tabs sublingually every 5 minutes as needed for chest pain. 5. Omeprazole 20 mg p.o. daily. 6. MiraLax 17 mg p.o. b.i.d. 7. Senna 12.7 mg p.o. daily. 8. Sertraline 100 mg p.o. daily. 9. Sodium Phosphate enema p.r. daily prn. 10. Sucralfate 1 gm p.o. b.i.d. 11. Tramadol 50 mg p.o. q.8 hours prn pain. 12. Aspirin 81 mg p.o. daily. New medications: Tramadol and Lovenox. CONDITION ON DISCHARGE: Stable. DISPOSITION: To [place] [facility]. TIME SPENT: One hour with 30 minutes of it spent [id number]. MAGALY LOPEZ, ABDULLAHI [id number]/[facility] #: [id number] STEV[place]
== END 2018-11-10 16:05 | DRG 470 ==
LOC: SSU 20:59
PROVIDERS: ADMIT Internal Medicine; ATTEND Internal Medicine
PROC: 0SRS0JA Replacement of Left Hip Joint, Femoral Surface with Synthetic Substitute, Uncemented, Open Approach (ICD-10-PCS; principal; 2018-11-08 15:45)
DX: S72.012A Unspecified intracapsular fracture of left femur, initial encounter for closed fracture (principal); K59.00 Constipation, unspecified; G30.9 Alzheimer's disease, unspecified; F02.80 Dementia in other diseases classified elsewhere, unspecified severity, without behavioral disturbance, psychotic disturbance, mood disturbance, and anxiety; F41.9 Anxiety disorder, unspecified; R00.0 Tachycardia, unspecified; Z66 Do not resuscitate; K21.9 Gastro-esophageal reflux disease without esophagitis; S00.03XA Contusion of scalp, initial encounter; W01.0XXA Fall on same level from slipping, tripping and stumbling without subsequent striking against object, initial encounter; Y92.009 Unspecified place in unspecified non-institutional (private) residence as the place of occurrence of the external cause; Z79.82 Long term (current) use of aspirin
CPT/HCPCS: 36415; 72170; 80048; 81003; 85025; 88305; 88311; 93005; 93306; A9270-GY; C1776; G8978-GP-CN; G8979-GP-CJ; J0690; J1100; J1644; J1650; J2250; J2270; J2405; J2704; J3010; J3490